=== PATIENT | male | born 1985 | race Caucasian/White ===

== ENCOUNTER 2019-12-05 03:44 | Emergency (ER) | payer OTHER, SELFPAY ==
--- NOTE | 2019-12-05 03:49 | ED.EYEPROB ---
HPI - Eye Problem General Chief complaint: Eye Problems Stated complaint: eye pain Time Seen by Provider: 12/05/19 03:48 History of Present Illness HPI Narrative: Patient is a 34-year-old male who presents the ER with left eye pain. Symptoms began yesterday. He wears contacts daily and he removed it from his eye after he started having the irritation. Today he developed much more redness and swelling and irritation. He is unable to see out of his left eye. He can sense light and he does have photophobia. No drainage but he does have a lot of tearing. No fever/chills/sweats/trauma. Related Data Allergies Allergy/AdvReac Type Severity Reaction Status Date / Time No Known Allergies Allergy Unverified 03/21/19 02:46 Review of Systems Review of Systems: All systems reviewed & are unremarkable except as noted in HPI and below Eyes: Eyes: Reports change in vision and Reports photophobia Comments: Eye redness and pain. Left side PMFSH Past Medical History Medical History (Updated 12/05/19 @ 05:35 by Garth Hernandez MD) No pertinent past medical history Surgical History Surgical History (Updated 12/05/19 @ 05:09 by Garth Hernandez MD) No pertinent past surgical history Social History Social History (Updated 12/05/19 @ 05:09 by Garth Hernandez MD) Smoking status: Current every day smoker Gender identity (if verbalized by the patient): Male Exam Narrative: Exam Narrative: GENERAL: Uncomfortable-appearing, well-nourished, and in no acute distress. HEAD: Normocephalic, atraumatic. EYES: PERRLA and EOMI. left eye with scleral injection. Slit lamp evaluation performed of the left eye, fluorescein staining also used, there is a central keratitis with increased central uptake with a honeycomb appearance to it. No foreign body noted. 20/20 vision right eye. Unable to perform visual acuity exam with left eye. ENT: Mucous membranes moist. EXTREMITIES: Normal range of motion. No edema. NEURO: Alert and oriented x3. Course Course Emergency Course: I have discussed the case with Dr. Ríos at [facility]. She would like the patient to receive moxifloxacin eyedrops in his eye every hour until he can be seen in clinic. Patient has an appointment at 9 AM at the [facility]. Patient has verbalized understanding of the treatment plan and will be making the appointment. Vital Signs Vital signs: Vital Signs Temperature 98.6 F 12/05/19 03:51 Pulse Rate 94 12/05/19 03:51 Respiratory Rate 19 12/05/19 03:51 Blood Pressure 156/82 H 12/05/19 03:51 Pulse Oximetry 98 12/05/19 03:51 Temperature 98.6 F 12/05/19 03:51 Pulse Rate 108 H 12/05/19 04:50 Respiratory Rate 22 H 12/05/19 04:50 Blood Pressure 156/97 H 12/05/19 04:50 Pulse Oximetry 100 12/05/19 04:50 Discharge Plan Discharge Clinical Impression: Abrasion of cornea with infection Qualifiers: Encounter type: initial encounter Laterality: left Qualified Code(s): S05.02XA - Injury of conjunctiva and corneal abrasion without foreign body, left eye, initial encounter Patient Disposition: Home, Self-Care Condition: Stable Instructions: Antibiotic Form, Corneal Abrasion (ED), Keratitis (ED) Additional Instructions: You have a clinic appointment at 9 AM at the [facility]. You need to arrive 30 minutes early for paperwork and registration. In the meantime you should be applying eyedrops to your left eye every hour to treat your infection. If you do not make this appointment you risk permanent blindness or loss of eye. Follow-up/Referrals: Dr Sara [Other] (Follow up today at 9a) UNKNOWN,DOCTOR [Primary Care Provider] -
[2019-12-05 03:51] VITALS: BP 156/82; PULSE 94; RESP 19; TEMP 37; O2SAT 98
[2019-12-05 04:50] VITALS: BP 156/97; PULSE 108; RESP 22; O2SAT 100
[2019-12-05] MEDS: MOXIFLOXACIN HCL 0.5% 3 ML OPHTH SOLN 1 DROP LEFT EYE (05:27)
[2019-12-05 05:54] VITALS: BP 138/90; PULSE 99; RESP 19; TEMP 36.3; O2SAT 100
== END 2019-12-05 05:55 | disposition home or self-care (01) ==
PROVIDERS: Emergency Provider Emergency Medicine
DX: S05.02XA Injury of conjunctiva and corneal abrasion without foreign body, left eye, initial encounter (principal); F17.200 Nicotine dependence, unspecified, uncomplicated; X58.XXXA Exposure to other specified factors, initial encounter
CPT/HCPCS: 99283; A9270